=== PATIENT | female | born 1970 | race Caucasian/White ===

== ENCOUNTER → 2020-03-23 | Outpatient (CLI) | payer BC ==
[2020-03-23 16:34] LABS: EOS # 0.1 (0.04-0.40); EOS % 1.3 % (1.0-5.0); HEMATOCRIT 46.7 % (37.0-47.0); HEMOGLOBIN 15.5 g/dL (12.5-16.0); LYMPH# 2.5 (1.50-4.00); MEAN CELL VOLUME 91 fl (78-100); MEAN CORPUSCULAR HEMOGLOBIN 30 pg (27-31); MEAN CORPUSCULAR HGB CONC 33 g/dL (33-37); MEAN PLATELET VOLUME 9.7 fl (7.4-10.4); MONO # 0.6 (0.20-0.80); NEU # 5.7 (1.40-6.50); PLATELET COUNT 273 K/mm3 (130-400); RED BLOOD COUNT 5.15 M/mm3 (4.10-5.30); RED CELL DISTRIBUTION WIDTH 12.4 % (11.5-14.5); WHITE BLOOD COUNT 8.9 K/mm3 (4.8-10.8)
[2020-03-23 16:44] LABS: ALBUMIN 4.9 g/dL (3.5-5.0)
[2020-03-23 16:45] LABS: POTASSIUM 4.6 mmol/L (3.5-5.1); PROTHROMBIN TIME 9.8 SECONDS (9.0-12.0)
[2020-03-23 16:46] LABS: CALCIUM 10.5 mg/dL (8.3-10.5)
[2020-03-23 16:47] LABS: TOTAL PROTEIN 8.2 g/dL (6.4-8.3)
[2020-03-23 16:49] LABS: TOTAL BILIRUBIN 0.5 mg/dL (0.2-1.2)
== END ==
LOC: LAB 16:18
PROVIDERS: Internal Medicine
DX: K92.1 Melena (principal); D64.9 Anemia, unspecified

== ENCOUNTER → 2020-08-03 | Outpatient (CLI) | payer BC | LOC: RAD 10:09 | DX: M54.5 Low back pain (principal) ==

== ENCOUNTER → 2022-03-18 | Outpatient (CLI) | payer BC ==
[2022-03-18 08:56] LABS: BASO # 0.02 K/mm3 (0.02-0.10); EOS % 1.5 % (1.0-5.0); HEMATOCRIT 45.5 % (37.0-47.0); HEMOGLOBIN 14.7 g/dL (12.5-16.0); LYMPH# 1.86 K/mm3 (1.50-4.00); MEAN CELL VOLUME 94 fl (78-100); MEAN CORPUSCULAR HEMOGLOBIN 31 pg (27-31); MEAN CORPUSCULAR HGB CONC 32 g/dL (33-37); MEAN PLATELET VOLUME 9.5 fl (7.4-10.4); MONO # 0.37 K/mm3 (0.20-0.80); NEU # 4.16 K/mm3 (1.40-6.50); PLATELET COUNT 225 K/mm3 (130-400); RED BLOOD COUNT 4.82 M/mm3 (4.10-5.30); RED CELL DISTRIBUTION WIDTH 11.7 % (11.5-14.5); WHITE BLOOD COUNT 6.5 K/mm3 (4.8-10.8)
[2022-03-18 09:27] LABS: POTASSIUM 4.3 mmol/L (3.5-5.1)
[2022-03-18 09:28] LABS: ALBUMIN 4.2 g/dL (3.5-5.0)
[2022-03-18 09:29] LABS: CALCIUM 9.7 mg/dL (8.3-10.5)
[2022-03-18 09:30] LABS: TOTAL PROTEIN 7.1 g/dL (6.4-8.3)
[2022-03-18 09:32] LABS: TOTAL BILIRUBIN 0.4 mg/dL (0.2-1.2)
== END ==
LOC: LAB 08:39
PROVIDERS: Internal Medicine
DX: Z00.00 Encounter for general adult medical examination without abnormal findings (principal); Z12.39 Encounter for other screening for malignant neoplasm of breast